=== PATIENT | female | born 1940 | race Caucasian/White ===

== ENCOUNTER 2024-02-17 12:54 | Emergency (ER) | payer MEDICARE, SELFPAY ==
[2024-02-17 12:56] VITALS: BP 147/65; BMI 28.0
--- NOTE | 2024-02-17 13:52 | ED.GENMED ---
History of Present Illness
General
Chief Complaint: Flank Pain
Time Seen by Provider: 02/17/24 13:23
Travel History
Have you had any contact with someone who has COVID-19?: No
Do you have any symptoms of coronavirus? Fever > 100 degrees, chills, cough, shortness of breath, sore throat, loss of taste or smell, muscle aches, or headache?: No
History of Present Illness
History of Present Illness:
83-year-old female presents for evaluation of left lower back pain. The pain began today without any falls or trauma. She took her routine scheduled oxycodone this morning for her chronic fibromyalgia with no improvement. Denies any dysuria or
hematuria. Pain is constant, noncolicky, nonradiating. Denies any lower extremity paresthesias or urinary retention
Past History
Past History
ED Past Medical History: Other (Fibromyalgia)
ED Past Surgical History: None
Review of Systems
Review of Systems
Allergies reviewed?: Yes
All Other Systems: ROS reviewed and negative except as documented in HPI and ROS
Phy Exam
Physical Exam
Physical Exam:
GEN: Well appearing, NAD, WDWN
HEENT: Oral mucosa moist, no scleral icterus
Cardiac: Regular rate
Lung: No respiratory distress, no tachypnea
MSK: No gross deformity or injuries. Reproducible tenderness to the left paraspinous musculature at the superior gluteal region. Straight leg raise test negative bilaterally. Back range of motion is normal. No CVA tenderness
Skin: Good color, no pallor or jaundice, no rashes
Neuro: AO x3, moves all extremities freely
Psych: Calm, cooperative
Course
Orders/Labs/Results
Orders:
Orders
02/17/24 13:51
Ketorolac [Toradol] 30 mg IM NOW STA
02/17/24 13:52
CT Abd/pel Without Iv Or Oral Urgent
Comment:
Reason For Exam: L flank pain
02/17/24 14:10
Urinalysis Reflex To Culture Urgent
Date Specimen was Collected: 02/17/24
Time Specimen was Collected: 13:53
Urine Microscopic Reflex Cult Urgent
02/17/24 15:55
Lidocaine [Lidocaine 4% Patch] 1 patch TOPICAL NOW STA
Abnormal Lab Results
02/17/24
14:10
Urine Bilirubin 1+ A
(Negative)
Leukocyte Esterase Rfl Trace A
(Negative)
Urine Bacteria (Reflex) Few A
(Negative)
Vital Signs
Initial and Last Documented VS:
Initial Vital Signs
Temp Pulse Resp BP Pulse Ox
98 F 61 16 147/65 97
02/17/24 12:56 02/17/24 12:56 02/17/24 12:56 02/17/24 12:56 02/17/24 12:56
Last Documented Vital Signs
Temp Pulse Resp BP Pulse Ox
98 F 61 16 147/65 97
02/17/24 12:56 02/17/24 12:56 02/17/24 12:56 02/17/24 12:56 02/17/24 12:56
MDM/Problems Addressed
MDM/Problems Addressed:
Imaging shows no evidence for obstructive ureterolithiasis to explain the patient's symptoms. She has no anterior abdominal tenderness on exam. Likely self-limited musculoskeletal source to pain. Discussed supportive care. Although she does have
mild chronic kidney disease will trial a short course of meloxicam for added pain relief given that she is already on high-dose opiates at home. Recommend outpatient physical therapy through her primary care physician
*Critical Care Note
Total Time (30-74mins, 75-104mins- exclusive of procedures): Not Applicable
ED Attending Note
-
Portions of this chart may have been created with voice recognition software.� Occasional wrong word or��sound alike� substitutions may have occurred due to the inherent limitations of voice recognition software.
Discharge Plan
Departure
Patient Disposition: Home (Routine Discharge)
Date of Disposition: 02/17/24
Time of Disposition: 16:13
Patient with high blood pressure during this ER visit?: Yes
Discharge Problem:
Acute left-sided low back pain
Instructions: Low Back Pain ED
Prescriptions:
New
meloxicam 7.5 mg tablet
7.5 mg PO DAILY Qty: 10 0RF
No Action
lidocaine 4 % adhesive patch,medicated
1 patch topical BID PRN (Reason: pain) Qty: 10 0RF
oxycodone-acetaminophen [Percocet] 5-325 mg tablet
1 tab PO Q4HPRN PRN (Reason: pain) Qty: 10 0RF
Referrals:
Maria Esther Cerda MD, Resident [Family Provider] -
Activity Restrictions/Additional Instructions:
Your CAT scan shows no obvious cause of your pain. The pain is likely due to a muscular strain or pinched nerve. You do have a right-sided kidney stone however this is not blocking any urine and thus is not causing pain
Please discuss with your primary care doctor whether physical therapy would be beneficial
Interventions
Interventions:
*Risk Screen - Suicide Last Done: 02/17/24 12:56
*General Assessment Last Done: 02/17/24 13:43
*Neglect/Abuse Screening Last Done: 02/17/24 12:56
ED- Fall Risk Assessment Last Done: 02/17/24 13:49
*ED COVID-19 Vaccine History Last Done: 02/17/24 12:56
GS-Murjji-Lutwsrdkhi Assessment Last Done: 02/17/24 13:43
Discharge Date and Time
Print Language: TRINIDADIAN
[2024-02-17] MEDS: TORADOL 30 MG IM (14:01)
[2024-02-17 14:33] LABS: Urine Albumin Trace (Neg - Trace); Urine Bilirubin 1+ (Negative); Urine Character Clear (Clear); Urine Color Yellow; Urine Glucose Negative (Negative); Urine Ketone Negative (Negative); Urine Leukocyte Trace (Negative); Urine Nitrite Negative (Negative); Urine Occult Blood Negative (Negative); Urine Specific Gravity 1.025 (<1.030); Urine Urobilinogen Negative (Neg - 1+)
[2024-02-17 15:18] LABS: Urine Amorphous Seen; Urine Bacteria Few (Negative); Urine Red Blood Cell 0-2 /HPF (0-2)
[2024-02-17] MEDS: LIDOCAINE 4% PATCH 1 PATCH TOPICAL (16:01)
== END 2024-02-17 16:20 | disposition home or self-care (01) ==
LOC: EMR 12:54
PROVIDERS: Physician Assistant; EMERGENCY PHYSICIAN Student in an Organized Health Care Education/Training Program; FAMILY PHYSICIAN Student in an Organized Health Care Education/Training Program
DX: M54.50 Low back pain, unspecified (principal); R03.0 Elevated blood-pressure reading, without diagnosis of hypertension
CPT/HCPCS: 99284; 96374; 74176; 81003; 81015

== ENCOUNTER → 2024-09-19 15:28 | Outpatient (REF) | payer MEDICARE, SELFPAY | LOC: HWRAD 15:28 | PROVIDERS: ATTENDING PHYSICIAN Student in an Organized Health Care Education/Training Program; FAMILY PHYSICIAN Student in an Organized Health Care Education/Training Program | DX: M54.2 Cervicalgia (principal) | CPT/HCPCS: 72040 ==

== ENCOUNTER → 2025-06-26 12:11 | Outpatient (REF) | payer MEDICARE, SELFPAY | LOC: HWRAD 12:11 | PROVIDERS: ATTENDING PHYSICIAN Student in an Organized Health Care Education/Training Program | DX: M79.18 Myalgia, other site (principal) | CPT/HCPCS: 72110; 73523 ==